=== PATIENT | male | born 1995 | race Hispanic/Latino ===

== ENCOUNTER 2020-10-05 20:18 | Emergency (ER) | payer SELFPAY ==
[2020-10-05] MEDS ORDERED: Ondansetron ODT 4 MG TAB ONE (21:03)
== END 2020-10-05 21:09 | disposition home or self-care (01) ==
LOC: BURERS 20:18
DX: R11.2 Nausea with vomiting, unspecified (principal); T46.6X5A Adverse effect of antihyperlipidemic and antiarteriosclerotic drugs, initial encounter; E78.5 Hyperlipidemia, unspecified; E78.00 Pure hypercholesterolemia, unspecified; E78.1 Pure hyperglyceridemia
CPT/HCPCS: 99283; Q0162